=== PATIENT | male | born 1950 | race Caucasian/White ===

== ENCOUNTER 2017-01-18 10:29 | Emergency (ER) | payer MEDICARE ==
[~2017-01-18] VITALS: Ht 188 cm; Wt 131.5 kg
[2017-01-18 10:41] VITALS: BP 130/80; PULSE 78; RESP 16; TEMP 99.2; O2SAT 96
[2017-01-18] MEDS ORDERED: DULO1CAP PO (10:55)
[2017-01-18] MEDS ORDERED: MAGN420T PO (10:55)
[2017-01-18] MEDS ORDERED: GLIP10TA6 PO (10:55)
[2017-01-18] MEDS ORDERED: LISI40TA PO (10:55)
[2017-01-18] MEDS ORDERED: ALAV10TA10 PO (10:55)
[2017-01-18] MEDS ORDERED: LATA0.002 EACH EYE (10:55)
[2017-01-18] MEDS ORDERED: CYAN100017 PO (10:55)
[2017-01-18] MEDS ORDERED: OMEP20TA PO (10:55)
[2017-01-18] MEDS ORDERED: SERT-129 PO (10:55)
[2017-01-18] MEDS ORDERED: ATOR20TA15 PO (10:55)
[2017-01-18] MEDS ORDERED: CHLO25TA2 PO (10:55)
[2017-01-18] MEDS ORDERED: METF850T PO (10:55)
[2017-01-18] MEDS ORDERED: ONGL5TAB PO (10:55)
[2017-01-18] MEDS ORDERED: oxyCODONE/ACETAMINOPHEN 5 MG/325 MG TAB PO ONE (11:00)
[2017-01-18] MEDS ORDERED: FURO40TA PO (11:03)
[2017-01-18] MEDS ORDERED: [UNRECOGNIZED DRUG - CODE] PO (11:03)
[2017-01-18] MEDS ORDERED: INSU1INJ18 SQ (11:03)
[2017-01-18] MEDS ORDERED: IPRAAER INH (11:03)
[2017-01-18] MEDS ORDERED: OMEG100037 PO (11:03)
[2017-01-18] MEDS ORDERED: NOVOINJ3 SQ (11:03)
[2017-01-18] MEDS ORDERED: NIAC500T18 PO (11:03)
[2017-01-18] MEDS ORDERED: CIPR500T2 PO (11:03)
[2017-01-18] MEDS ORDERED: ASPI-110 PO (11:03)
[2017-01-18] MEDS ORDERED: METO25TA3 PO (11:03)
[2017-01-18] MEDS ORDERED: GARL10CA2 PO (11:03)
--- NOTE | 2017-01-18 11:13 | PD ---
HPI Chief Complaint: Pain: Acute or Chronic Time Seen by Provider: 10:58 Travel History International Travel<30 days: No Contact w/Intl Traveler<30days: No Traveled to known affect area: No History of Present Illness HPI Patient is a 66-year-old male presents emergency department with left knee pain. Patient states [place] He states that walking on his knee a lot more recently being that is on vacation. He denies any traumatic event. Patient states that he has a history of vascular surgery to his left lower extremity as well as diabetic neuropathy. [facility] He states this is been only minimally helping with his pain. He localizes the pain to the medial aspect of the left knee. Denies any ankle pain hip pain chest pain abdomen pain pelvis pain. PFSH Past Medical History Cardiovascular Problems: Yes (VASCULAR SX LEGS - STENTS, HTN, CHOL) High Cholesterol: Yes Diabetes: Yes Patient Takes Glucophage: Yes Diminished Hearing: No Glaucoma: Yes Hypertension: Yes Tetanus Vaccination: < 5 Years Past Surgical History Other Surgery: Yes (VASCULAR SX. ON LEGS) Social History Alcohol Use: Yes (OCC) Tobacco Use: No Substance Use: No Allergies-Medications (Allergen,Severity, Reaction): Coded Allergies: No Known Allergies (Unverified , 01/18/17) Reported Meds & Prescriptions Reported Meds & Active Scripts Active Percocet (Oxycodone-Acetaminophen) 10-325 mg Tab 1 Tab PO Q6H PRN Do not take these at the same time as Tylenol with codeine. Reported Bio-Flax (Flaxseed (Linseed)) 1,000 Mg Cap 1 Cap PO DAILY Metoprolol Tartrate 25 Mg Tab 12.5 Mg PO BID Garlic 10 Mg Cap 1 Cap PO DAILY Furosemide 40 Mg Tab 40 Mg PO DAILY Fish Oil 1000 mg (Laurel-3 Fatty Acids) 1 Cap Cap 1 Caplet PO BID Ciprofloxacin (Ciprofloxacin HCl) 500 Mg Tab 500 Mg PO BID Aspirin 81 (Aspirin) 81 Mg Tabdr 81 Mg PO DAILY Niacin (Niacinamide) 500 Mg Tab 1,000 Mg PO HS Novolog Flexpen Inj (Insulin Aspart) 300 Unit/3 Ml Pen 6 Units SQ TID Basaglar Kwikpen (Insulin Glargine) 100 Unit/Ml Pen 60 Units SQ HS Combivent Respimat Inh (Ipratropium-Albuterol Inh) 20-100 [facility]/Act Aero 2 Puff INH BID Sertraline (Sertraline HCl) 100 Mg Tab 200 Mg PO DAILY Onglyza (Saxagliptin) 5 Mg Tab 5 Mg PO DAILY Omeprazole 20 Mg Tab 20 Mg PO DAILY Metformin (Metformin HCl) 850 Mg Tab 850 Mg PO TIDPC With meals Magnesium Oxide 420 Mg Tab 1 Tab PO DAILY Alavert (Loratadine) 10 Mg Tab 10 Mg PO DAILY Lisinopril 40 Mg Tab 40 Mg PO DAILY Latanoprost Opth Drops (Latanoprost) 0.005% Drops 1 Drop EACH EYE HS Refrigerate until opened. Glipizide 10 Mg Tab 10 Mg PO BIDAC Take 30 minutes before a meal Duloxetine DR (Duloxetine HCl) 20 Mg Capdr 20 Mg PO DAILY B-12 (Cyanocobalamin) 1,000 Mcg Cap 1,000 Mcg PO DAILY Chlorthalidone 25 Mg Tab 12.5 Mg PO DAILY Atorvastatin (Atorvastatin Calcium) 20 Mg Tab 20 Mg PO HS Review of Systems Except as stated in HPI: all other systems reviewed are Neg Physical Exam Narrative GENERAL: Well-nourished, well-developed patient. SKIN: Brisk capillary refill to the entire left lower extremity, signs of adequate perfusion. HEAD: Normocephalic. EYES: No scleral icterus. No injection or drainage. NECK: Supple, trachea midline. No JVD or lymphadenopathy. CARDIOVASCULAR: Regular rate and rhythm without murmurs, gallops, or rubs. 2+ bilateral equal pulses in all 4 extremities. RESPIRATORY: Breath sounds equal bilaterally. No accessory muscle use. GASTROINTESTINAL: Abdomen soft, non-tender, nondistended. MUSCULOSKELETAL: No cyanosis, or edema. There is no joint effusion of the left knee, there is some tenderness to the medial aspect. There is no laxity under valgus testing however there is significant tenderness with this testing. Anterior and posterior drawer testing negative. His range of motion is tender but is full. Compartments are soft. Hip and ankle are atraumatic. Right lower extremity is atraumatic. BACK: Nontender without obvious deformity. No CVA tenderness. Data Data Last Documented VS Vital Signs Date Time Temp Pulse Resp B/P Pulse Ox O2 Delivery O2 Flow Rate FiO2 01/18/17 10:41 99.2 78 16 130/80 96 Orders Knee, Complete (4vws) (01/18/17 ) Oxycodone-Acetamin 5-325 Mg (Percocet (01/18/17 11:00) MDM Medical Decision Making Medical Screen Exam Complete: Yes Emergency Medical Condition: Yes Differential Diagnosis Strain, sprain, fracture less likely, arthritis. Narrative Course 66-year-old male presents with left knee pain. Only abnormal physical exam finding was some tenderness to the medial aspect. Consider medial collateral knee strain. There is no laxity. X-rays were negative except for some arthritis. Discussed the results with the patient recommended follow with orthopedic surgeon his primary care physician for consideration of an MRI. He was offered a knee immobilizer but states he is on vacation would rather not. He was able to cannulate in the emergency department albeit antalgicly. He is stable for discharge at this time. Discussed symptomatic management and return to ED criteria. Diagnosis Primary Impression: Left knee pain Qualified Code: M25.562 - Acute pain of left knee Additional Impression: Arthritis Referrals: Morales Garner MD Med/Other Pt SpecificInfo: Prescription(s) given Scripts Oxycodone-Acetaminophen (Percocet)10-325 mg Tab1 Tab PO Q6H PRN (PAIN) #15 TAB Ref 0 Do not take these at the same time as Tylenol with codeine. Prov:Timothy Schrader MD 01/18/17 Disposition: 01 DISCHARGE HOME Condition: Stable Timothy Schrader MD January 18, 2017 11:13
--- NOTE | 2017-01-18 11:26 | RADHPO ---
EXAM DATE/TIME: 01/18/2017 11:03 [facility] COMPARISON: No previous studies available for comparison. INDICATIONS : Left anterior/medial knee pain with no known injury. Lower extremity swelling. MEDICAL HISTORY : Hypertension. Hypercholesterolemia. Diabetic. SURGICAL HISTORY : Lower extremity vascular stenting. ENCOUNTER: Initial ACUITY: 2 days PAIN SCORE: 6/10 LOCATION: Left anterior medila knee FINDINGS: Multiple views of the knee show joint space narrowing with periarticular sclerotic change and osteoph yte production. No fracture or dislocation. No joint effusion. Soft tissues are unremarkable. A stent overlies the distal SFA and popliteal artery. CONCLUSION: 1. Moderate osteoarthritis. 2. No acute abnormality. Sudarshan Issa Jr., MD on January 18, 2017 at 11:23 Board Certified Radiologist. This report was verified electronically.
[2017-01-18] MEDS ORDERED: PERC10TA27 PO (11:48)
== END 2017-01-18 11:55 | disposition home or self-care (01) ==
LOC: PHEFT 10:29
DX: M25.562 Pain in left knee (principal); E11.40 Type 2 diabetes mellitus with diabetic neuropathy, unspecified; I10 Essential (primary) hypertension; Z79.84 Long term (current) use of oral hypoglycemic drugs
CPT/HCPCS: 73564; 99283